=== PATIENT | female | born 1975 | race African-American/Black ===

== ENCOUNTER 2020-02-15 11:23 | Emergency (ER) | payer BC, OTHER ==
[2020-02-15 11:35] VITALS: PULSE 104; TEMP 98
[2020-02-15 11:36] VITALS: BP 131/75
--- NOTE | 2020-02-15 11:39 | PDOC ---
Rapid Medical Evaluation Time Seen by Provider: 02/15/20 11:30 Medical Evaluation: 02/15/20 11:31 HPI: The patient is a 44 yr old with history of asthma, who presents for cough and wheezing x 5 days, fevers/chills for 6 days. Using neb with min effect The patient has possible exposure to coronavirus. - Recent travel. They are concerned they have coronavirus and present for testing. - difficulty breathing, shortness of breath, chest pain, lightheadedness, dizziness nausea, vomiting, and diarrhea. Other 12 point ROS reviewed and negative. EXAM: General: NAD, well-appearing, AAO x3. ENT: No rhinorrhea or nasal congestion. Neck: FROM, no midline tenderness Lungs: Clear to auscultation bilateral without wheezes rales or rhonchi. Normal excursion. Patient is able to speak in full sentences. + dry hacking cough during exam Heart: Regular rate and rhythm, S1-S2 present, no murmurs rubs or gallops. Abdomen: Non-distended MSK/Extremities: no decreased ROM, no obvious deformities. No cyanosis Neuro: Normal gait, cranial nerves II through XII grossly intact. SKIN: No rashes, bruising. Color normal appering A/P: Cough, fever x 5 days. 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 Patient does meet criteria for testing at this time . Strict return precautions given. Instructed that if they should have shortness of breath, chest pain or difficulty breathing to return to the emergency room fo r further management and treatment. Recommend self-isolation until she receives the results of covid. CXR ordered. 02/15/20 11:40 CXR -. Rx for prednisone ordered Discharge home I discussed the physical exam findings, ancillary test results and final diagnoses with the patient. I answered all of the patient's questions. The patient was satisfied with the care received and felt comfortable with the discharge plan and treatment plan. The Patient agrees to follow up with the primary care physician/specialist within 24-72 hours. Return precautions were given. Discharge Disposition - Diagnosis Asthma - Discharge Dispostion Disposition: HOME Condition at time of disposition: Good - Referrals - Patient Instructions Printed Discharge Instructions: [facility]-Coronavirus Instructions Additional Instructions: Although you have been not been diagnosed with covid but I have enclosed information Take prednisone until completed. Use albuterol as needed You were treated for possible [place] virus (COVID-19) You were tested today. Take Tylenol 500mg every 4 hours as needed for fever or pain You may take over the counter cough syrup. Follow the dosing instructions on the bottle. Warm tea, honey, and salt water gargles may help your symptoms. Please self quarantine for two weeks and follow up with your primary care doctor and the department of health. Return to the ER for shortness of breath, difficulty breathing, chest pain, or if you have any changes in your symptoms. - Post Discharge Activity
== END 2020-02-15 12:13 | disposition home or self-care (01) ==
LOC: JER 11:23
DX: Z03.818 Encounter for observation for suspected exposure to other biological agents ruled out (principal); J45.909 Unspecified asthma, uncomplicated
CPT/HCPCS: 71045-TC-FY; 87798; 87804; 99283-25; U0002